=== PATIENT | male | born 1970 | race Hispanic/Latino ===

== ENCOUNTER 2019-04-30 14:53 | Observation (INO) | payer OTHER, SELFPAY ==
[2019-04-30 15:34] LABS: #Eosinphils 0.2 thou/uL (0.0-0.7); #Lymphocytes 1.1 thou/uL (1.20-3.40); #Monocytes 0.3 thou/uL (0.11-0.59); #Neutrophils 6.4 thou/uL (1.40-6.50); %Basophils 0.1 % (0.0-1.0); %Eosinophils 2.2 % (0.0-10.0); %Monocytes 3.8 % (0.0-10.0); %Neutrophils 80.1 % (42.0-75.0); Hemoglobin 11.6 g/dL (14.0-18.0); Mean Corpuscular HGB CONC 34.7 g/dL (32.0-36.0); Mean Corpuscular Hemoglobin 30.4 pg (27.0-31.0); Mean Corpuscular Volume 87.5 fL (78.0-98.0); Mean Platelet Volume 8.8 fL (7.4-10.4); Platelet Count 169 thou/uL (130-400); RBC Distribution Width 11.1 % (11.5-14.5); Red Blood Cell (RBC) Count 3.83 mill/uL (4.70-6.10)
--- NOTE | 2019-04-30 15:42 | CT ---
Exam: Head CT without contrast HISTORY: Bilateral blurred vision. COMPARISON: none FINDINGS: Hemorrhage: No intraparenchymal hemorrhage or extra-axial hematoma. Brain parenchyma: Cortical rain-white matter differentiation is preserved. No mass effect or midline shift. Basilar cisterns are patent. Ventricular system: Ventricles and sulci are patent and symmetric. Note is made of a cavum septa cass ucida and cavum verge. Calvarium: Intact. Sinuses and mastoid air cells: Adequate aeration. IMPRESSION: No acute intracranial process.
[2019-04-30 15:48] LABS: ALT (SGPT) 13 U/L (8-55); AST (SGOT) 15 U/L (5-34); Albumin 3.3 g/dL (3.5-5.0); Alkaline Phosphatase 87 U/L (40-110); Anion Gap 13 mmol/L (10-20); BUN (Urea Nitrogen) 18 mg/dL (8.9-20.6); Bilirubin, Total 0.4 mg/dL (0.2-1.2); Calc. Creatinine Clearance 0 mL/min (70-130); Calcium 8.9 mg/dL (7.8-10.44); Carbon Dioxide 24 mmol/L (22-29); Chloride 109 mmol/L (98-107); Estimated GFR-MDRD 51; Globulin 2.7 g/dL (2.4-3.5); Glucose 269 mg/dL (70-105); Potassium 4.8 mmol/L (3.5-5.1); Sodium 141 mmol/L (136-145)
[2019-04-30 16:22] LABS: Bilirubin Negative (Negative); Blood, Urine 2+ (Negative); Clarity Clear (Clear); Glucose, Urine (Dipstick) Greater than 1000 mg/dL (Negative); Leukocyte Negative Leu/uL (Negative); Nitrite Negative (Negative); Protein, Urine (Dipstick) 300 mg/dL (Neg-Trace); Urobilinogen Normal mg/dL (Less than 2)
[2019-04-30 16:35] LABS: Bacteria/HPF 2+ HPF (None Seen)
[2019-04-30 16:36] LABS: RBC/HPF 0-3 HPF (0-3); Squamous Epithelial 0-3 HPF (0-3)
[2019-04-30 16:41] LABS: Amphetamine Not Detected (NotDetected); Barbiturates Screen Not Detected (NotDetected); Benzodiazepine Screen Not Detected (NotDetected); Cocaine Metabolite Screen Not Detected (NotDetected); Medtox Control Line Valid? VALID (VALID); Medtox Reader # READER 1; Methadone Not Detected (NotDetected); Methamphetamine Not Detected (NotDetected); Opiate Screen Not Detected (NotDetected); Oxycodone Screen Not Detected (NotDetected); Phencyclidine (PCP) Not Detected (NotDetected); THC/Cannabinoid Screen Not Detected (NotDetected); Tricyclic Screen Not Detected (NotDetected)
--- NOTE | 2019-04-30 17:59 | PDOC.FPRHP ---
- History of Present Illness Chief Complaint: Blurry Vision History of Present Illness: 48yo M w/ PMHx of IDDM presents to the ED with complaint of blurry vision. Pt states that for the past week he has developed slowly progressive blurring of his vision. He states that initial his reading glasses helped correct this but currently his vision is so blurry that he can mostly only distinguish shapes. Pt states his right eye seems more blurry than his left. Denies any headaches, trauma, eye pain, eye discharge, or vision loss. Pt states that he has not been able to take his meal time insulin since he can't see the needles but continues to take his metformin. Has never seen an eye doctor due to having no healthcare coverage. Used to be treated for HTN and HLD but could not afford the Rx. Denies any weakness, numbness outside of his chronic neuropathy, difficulty speaking, or confusion. Pt used to be on indigent healthcare but does not have a stable home so has not been able to appropriately file the paperwork to maintain this. No recent illness. ED Course: CT brain negative. EKG no acute changes. Lab work significant for elevated glucose, no gap or ketones. Likely component of CKD. Received 325 asa and 1L NS. - History PMHx: IDDM, HTN, HLD PSHx: None FHx: DM Social: Previous 20 pack year smoker, quit 3 months ago, does not drink, occasional marijuana use, last used cocaine and meth about 6 mo ago - Review of Systems General: denies: fever/chills, weight/appetite/sleep changes Eyes: reports: vision changes. denies: eye pain ENT: denies: nasal congestion, rhinorrhea Respiratory: denies: cough, shortness of breath Cardiovascular: denies: chest pain, palpitation Gastrointestinal: denies: nausea, vomiting, diarrhea Genitourinary: denies: dysuria, polyuria Skin: denies: rashes, lesions Musculoskeletal: denies: pain, tenderness Neurological: reports: numbness (chronic numbness to distal lower extremities) Psychological: denies: other - Vital signs BP: 158/94, MAP: 115, Pulse: 101, Resp: 18, Temp: 98.6 (Oral), Pain: 0, O2 sat: 100 on (Room Air), Wt: 59kg - Physical Exam Constitutional: NAD, awake, alert and oriented, well developed HEENT: normocephalic and atraumatic, PERRLA, EOMI, no scleral icterus, grossly normal hearing, MMM -HEENT: Subjective blurring of vision, can only distinguish outlines of objects, cannot see facial features Neck: supple, FROM Heart: RRR, normal S1/S2, no murmurs/rubs/gallops Lungs: CTAB, no respiratory distress, good air movement, no rales/rhonchi, no wheezing Abdomen: soft, non-tender, bowel sounds present Musculoskeletal: normal structure, normal tone Neurological: no focal deficit, normal sensation -Neurological: Strength 5/5 in all 4 extremities, no dysmetria, dysarthria, or dysdiadidochokinesia Skin: no rash/lesions, good turgor, capillary refill <2 seconds Heme/Lymphatic: no unusual bruising or bleeding, no purpura Psychiatric: normal mood and affect, good judgment and insight, intact recent and remote memory FMR H&P: Results - Labs Result Diagrams: 04/30/19 15:15 05/01/19 04:25 Lab results: WBC 8.0 thou/uL (4.8-10.8) 04/30/19 15:15 Hgb 11.6 g/dL (14.0-18.0) L 04/30/19 15:15 Hct 33.5 % (42.0-52.0) L 04/30/19 15:15 MCV 87.5 fL (78.0-98.0) 04/30/19 15:15 Plt Count 169 thou/uL (130-400) 04/30/19 15:15 Neutrophils % 80.1 % (42.0-75.0) H 04/30/19 15:15 Sodium 141 mmol/L (136-145) 04/30/19 15:15 Potassium 4.8 mmol/L (3.5-5.1) 04/30/19 15:15 Chloride 109 mmol/L (98-107) H 04/30/19 15:15 Carbon Dioxide 24 mmol/L (22-29) 04/30/19 15:15 BUN 18 mg/dL (8.9-20.6) 04/30/19 15:15 Creatinine 1.47 mg/dL (0.7-1.3) H 04/30/19 15:15 Glucose 269 mg/dL (70-105) H 04/30/19 15:15 Lactic Acid 1.8 mmol/L (0.5-2.2) 04/30/19 15:15 Calcium 8.9 mg/dL (7.8-10.44) 04/30/19 15:15 Total Bilirubin 0.4 mg/dL (0.2-1.2) 04/30/19 15:15 AST 15 U/L (5-34) 04/30/19 15:15 ALT 13 U/L (8-55) 04/30/19 15:15 Alkaline Phosphatase 87 U/L (40-110) 04/30/19 15:15 Serum Total Protein 6.0 g/dL (6.0-8.3) 04/30/19 15:15 Albumin 3.3 g/dL (3.5-5.0) L 04/30/19 15:15 Urine Ketones Negative mg/dL (Negative) 04/30/19 15:55 Urine Blood 2+ (Negative) A 04/30/19 15:55 Urine Nitrite Negative (Negative) 04/30/19 15:55 Ur Leukocyte Esterase Negative Henrry/uL (Negative) 04/30/19 15:55 Urine RBC 0-3 HPF (0-3) 04/30/19 15:55 Urine WBC 4-6 HPF (0-3) A 04/30/19 15:55 Ur Squamous Epith Cells 0-3 HPF (0-3) 04/30/19 15:55 Urine Bacteria 2+ HPF (None Seen) A 04/30/19 15:55 - EKG Interpretation EKG: NSR, rate 98, with no ectopics, Conduction normal, ST segments normal, T waves normal, Maben normal, Other findings include:, left atrial enlargement, possible , PA interval 146 ms - Radiology Interpretation CT scan - head Status: report reviewed by me (No acute intracranial process) FMR H&P: A/P - Problem List (1) IDDM (insulin dependent diabetes mellitus) Current Visit: Yes Status: Acute Code(s): E11.9 - TYPE 2 DIABETES MELLITUS WITHOUT COMPLICATIONS; Z79.4 - CORRECTION (CURRENT) USE OF INSULIN (2) HLD (hyperlipidemia) Current Visit: Yes Status: Acute Code(s): E78.5 - HYPERLIPIDEMIA, UNSPECIFIED (3) HTN (hypertension) Current Visit: Yes Status: Acute Code(s): I10 - ESSENTIAL (PRIMARY) HYPERTENSION (4) Vision blurred Current Visit: Yes Status: Acute Code(s): H53.8 - OTHER VISUAL DISTURBANCES (5) GRAHAM (acute kidney injury) Current Visit: Yes Status: Acute Code(s): N17.9 - ACUTE KIDNEY FAILURE, UNSPECIFIED Comment: vs CKD - Plan Vision Disturbance - Diabetic retinopathy vs CVA/TIA much less likely - Progressive blurring of vision over last week, worsening glycemic control, no other focal deficits, no eye pain or signs of infection - CT brain negative - MRI brain ordered - Risk stratify with FLP and HgbA1c - CM consulted to assist with medication and f/u as outpt Hyperglycemia - Uncontrolled IDDM - IDDM, takes metformin and meal time sliding scale insulin - Has never seen an eye doctor - no health care coverage - Has not taken insulin in last week, running out of metformin - HbA1c ordered - Moderate sliding scale insulin added for meals w/ bedtime SSI GRAHAM vs CKD - Cr: 1.47, only previous level 1.6 - Suspect chronic renal insufficiency, lisinopril started Homelessness - Limited access to healthcare or medications - CM consult Chronic Problems HTN and HLD - Monitor BP - Pt not medicated because he can't afford it - Will start lisinopril and atorvastatin VTE: Lovenox IVF: SL Diet: CC Code: Full Dispo: Admit to stroke obs. ELOS < 48hr PCP: Dr. Foy FMR H&P: Upper Level - Pertinent history 48 yo M w/ PMH of HTN, HLD and DMII presents for 1 week h/o worsening vision in b/l eyes. Rerports blurring of vision that has worsened over last week. No eye pain, total vision loss or visual field defects. No headaches, numbness, weakness, or tingling aside from baseline parethesias from his DM neuropathy. - Pertinent findings ROS: As above PE: Gen: NAD HEENT: Perrla, EOMI, Visual lema intact, grossly decreased vision without KALLIE , NCAT CV: RRR No MRG Resp: CTABL No wrr Abd: Soft NTND bsx4 Neuro: No focal deficit CNII-XII intact Psych: alert and cooperative - Plan Date/Time: 04/30/191758 I, Piter Dodson, , have evaluated this patient and agree with findings/ plan as outlined by medical intern resident. Pertinent changes/additions are listed here. 1) Loss of vision - appears gradual and likely related to underlying microvascular changes from DM retinopathy - would benefit from OP opthomologist; however, pt unfunded - vision has decreased to a point he can no longer measure amount of meal time insulin he is giving himself - cm consulted for difficult social situation - admit stroke obs - very unlikely stroke related given hx and lack of unilateral or vision field losses - consider further imaging 2) HTN - lisinopril - monitor pressures 3) HLD: Restart stain - am FLP 4) DMII: - Accuchecks achs, mild SSI Dispo: Stable, admit stroke obs and consult cm for assistance with difficult social situation. Consider further imaging. Will need OP optho evaluation, no emergent/urgent features of decreasing visual acuity. Addendum - Attending - Attending Attestation Date/Time: 05/01/19 2004 I personally evaluated the patient and discussed the management with Dr. Valdez. I agree with the History, Examination, Assessment and Plan documented above with any addition or exceptions noted below.
[2019-04-30] MEDS ORDERED: Aspirin Chewable 81 MG TAB ONE (18:01)
[2019-04-30 18:41] LABS: Hemoglobin A1c 7.9 % (4.0-6.0)
[2019-04-30 19:36] LABS: Troponin I Less than 0.010 ng/mL (< 0.028)
[2019-04-30] MEDS ORDERED: Dextrose 50% Abboject 50 ML SYRINGE SLOW IVP PRN (20:01)
[2019-04-30] MEDS ORDERED: hydrALAZINE 20 MG/ML VIAL SLOW IVP PRN (20:01)
[2019-04-30] MEDS ORDERED: HumaLOG 300 UNITS/3 ML VIAL SC PRN (20:01)
[2019-04-30] MEDS ORDERED: Dextrose 5% in Water 1,000 ML IV PRN (20:01)
[2019-04-30 20:04] VITALS: BMI 23.1
[2019-04-30] MEDS ORDERED: Atorvastatin Calcium 40 MG TAB PO SCH (21:00)
[2019-04-30 22:46] LABS: Troponin I 0.012 ng/mL (< 0.028)
[2019-05-01 05:14] LABS: Anion Gap 8 mmol/L (10-20); BUN (Urea Nitrogen) 19 mg/dL (8.9-20.6); Calc. Creatinine Clearance 78 mL/min (70-130); Calcium 8.7 mg/dL (7.8-10.44); Carbon Dioxide 30 mmol/L (22-29); Cardiac Risk 4.6 (Less than 4.5); Chloride 108 mmol/L (98-107); Cholesterol 199 mg/dl (< 200 Desired); Estimated GFR-MDRD 77; Glucose 240 mg/dL (70-105); HDL Cholesterol 43 mg/dL (>60 Neg Risk); LDL Cholesterol, Calculated 124 mg/dL; Potassium 4.3 mmol/L (3.5-5.1); Sodium 142 mmol/L (136-145); Triglycerides 158 mg/dL (Less than 150)
[2019-05-01] MEDS: HumaLOG 300 UNITS/3 ML VIAL SC PRN ×2 (05:34→11:39)
[2019-05-01] MEDS: Acetaminophen 325 MG TAB PO PRN ×2 (05:41→11:38)
--- NOTE | 2019-05-01 06:50 | PDOC.FM ---
- Subjective Subjective: Pt states he has been having progressive numbness and tingling in his feet making it difficult to walk. He also states he has been having worsening vision for the last year but acutely worsening in the last week. He denies early satiety, chest pain, SOB, or abdominal pain. He states in the last 6 months, he has been starting to treat his diabetes more aggressively with insulin. He states this was prompted by increased fatigue, unsteadiness with walking, and increasing lethargy. - Objective MAR Reviewed: Yes Vital Signs & Weight: Vital Signs (12 hours) Temp Pulse Resp BP Pulse Ox 05/01/19 03:21 97.9 F 86 14 149/86 H 97 04/30/19 23:39 98.6 F 93 16 183/85 H 97 04/30/19 19:20 98.0 F 96 18 188/89 H 98 Weight Weight 62.913 kg I&O: 04/29/19 04/30/19 05/01/19 06:59 06:59 06:59 Intake Total 810 Balance 810 Result Diagrams: 04/30/19 15:15 05/01/19 04:25 Phys Exam - Physical Examination Constitutional: NAD HEENT: moist MMs Neck: no JVD Respiratory: no wheezing, clear to auscultation bilateral Cardiovascular: RRR, no significant murmur Gastrointestinal: soft, non-tender, no distention, positive bowel sounds Musculoskeletal: no edema, pulses present Neurological: moves all 4 limbs blurry vision, decrased sensation on bilateral feet to ankle Psychiatric: A&O x 3 Skin: cap refill <2 seconds Dx/Plan (1) GRAHAM (acute kidney injury) Code(s): N17.9 - ACUTE KIDNEY FAILURE, UNSPECIFIED Status: Acute (2) HLD (hyperlipidemia) Code(s): E78.5 - HYPERLIPIDEMIA, UNSPECIFIED Status: Acute (3) HTN (hypertension) Code(s): I10 - ESSENTIAL (PRIMARY) HYPERTENSION Status: Acute (4) IDDM (insulin dependent diabetes mellitus) Code(s): E11.9 - TYPE 2 DIABETES MELLITUS WITHOUT COMPLICATIONS; Z79.4 - GROUP HOME (CURRENT) USE OF INSULIN Status: Acute (5) Vision blurred Code(s): H53.8 - OTHER VISUAL DISTURBANCES Status: Acute - Plan Plan: This is a 48 yo male with a pmh HTN, HLD, and IDDM Bilateral visual disturbance, likely 2/2 diabetic retinopathy -CT brain negative -A1c 7.9, LDL 124 -Case management for medication assistance -Nursing contacting pharmacy this AM for med rec -Pt will need outpt ophthalmology IDDM -No health coverage, no DM eye exams -No insulin last week 2/2 vision -ACHS accuchecks w/ moderate SSI GRAHAM Vs. CKD -Not much data to compare to -Continue lisinopril Homelessness -CM consult HTN/HLD -Not on medication due to cost, starting lisinopril and atorvastatin Addendum - Attending - Attending Attestation Date/Time: 05/01/19 1111 I personally evaluated the patient and discussed the management with Dr. Taylor I agree with the History, Examination, Assessment and Plan documented above with any addition or exceptions noted below. MRI negative. Vision changes likely 2/2 age vs IDDM. D/C home with close follow up in clinic for control of chronic medical problems. Uninsured so given contact info for [facility] clinic for sliding scale or [facility].
[2019-05-01] MEDS ORDERED: metFORMIN 500 MG TAB PO SCH (08:00)
[2019-05-01] MEDS ORDERED: Aspirin 81 mg Enteric Coated Tablet PO SCH (09:00)
[2019-05-01] MEDS ORDERED: Enoxaparin Sodium 40 MG/0.4 ML SYRINGE SC SCH (09:00)
[2019-05-01] MEDS ORDERED: Lisinopril 5 MG TAB PO SCH (09:00)
--- NOTE | 2019-05-01 09:54 | MRI ---
Exam: Brain MRI without contrast HISTORY: Stroke. Blurred vision x1 week. Diabetic patient. Taking insulin. COMPARISON: None FINDINGS: Calvarial marrow signal intensity: Appropriate T1 signal Gradient echo sequence: No hemorrhage Brain parenchyma: No mass, mass effect or midline shift. Brain volume, age-appropriate. Cortical rain-white matter differentiation: Preserved Restricted diffusion: Central arterial flow voids are maintained. Absent restricted diffusion White matter signal intensities:No significant T2 or FLAIR white matter hyperintensities. Sinuses: Minimal mucosal thickening of the ethmoid air cells. Ventricles: No hydrocephalus. Incidental cavum septa pellucidum and cavum Cheryl. IMPRESSION: 1. Absent restricted diffusion. No evidence of infarct.
[2019-05-01 11:54] VITALS: BP 151/94; TEMP 97.8
--- NOTE | 2019-05-01 14:27 | EKG ---
Test Reason : Blood Pressure : / mmHG Vent. Rate : 098 BPM Atrial Rate : 098 BPM P-R Int : 146 ms QRS Dur : 088 ms QT Int : 344 ms P-R-T Axes : 047 046 016 degrees QTc Int : 439 ms Normal sinus rhythm Possible Left atrial enlargement Borderline ECG Confirmed by ALFNOSO COBURN ([id number]), movie editor SOLO TOMLINSON ([id number]) on 05/01/2019 2:26:34 PM Referred By: Confirmed By:ALFONSO COBURN
== END 2019-05-01 15:59 | disposition home or self-care (01) ==
LOC: ERS 14:53 → 2SE 17:37
PROVIDERS: ADMIT Family Medicine; ATTEND Family Medicine
DX: H53.8 Other visual disturbances (principal); I10 Essential (primary) hypertension; E11.65 Type 2 diabetes mellitus with hyperglycemia; E78.5 Hyperlipidemia, unspecified; N17.9 Acute kidney failure, unspecified; Z79.4 Long term (current) use of insulin; Z87.891 Personal history of nicotine dependence; Z59.0 Homelessness
CPT/HCPCS: 36415; 36416; 70450; 70551; 80048; 80053; 80061; 80306; 81003; 81015; 82010; 83036; 83605; 84484; 85025; 93005; 94760; 96360; 96361; 96372; G0378; J1650

== ENCOUNTER 2020-01-28 06:27 | Outpatient (CLI) | payer OTHER ==
[2020-01-29 13:23] LABS: SARS-CoV-2 MS2 Positive; SARS-CoV-2 N Gene Negative; SARS-CoV-2 S Gene Negative; SARS-CoV-2 by NAA Not Detected (NotDetected); SARS-CoV-2 orf1ab Negative
== END 2020-01-28 06:28 | disposition home or self-care (01) ==
LOC: LABBT 06:27
PROVIDERS: ATTEND Ophthalmology Retina Specialist
DX: H33.021 Retinal detachment with multiple breaks, right eye (principal); Z20.828 Contact with and (suspected) exposure to other viral communicable diseases
CPT/HCPCS: 87635; U0003

== ENCOUNTER 2020-01-31 07:51 | Day surgery (SDC) | payer OTHER ==
[~2020-01-31 07:51] MED LIST: Fentanyl 100 MCG/2 ML VIAL ONE; Fluorouracil 100 MG, EPINEPHrine 0.3 MG, Dextrose 50% 3 ML in Ophthalmic Irrigation Sol... IRR SCH; Midazolam HCl 2 mg/2 ml Vial ONE
[2020-01-31] MEDS ORDERED: Cyclopentolate 1% Opth Drop 2 ML BOT ONE (08:43)
[2020-01-31] MEDS ORDERED: Phenylephrine 2.5% Ophth Soln 5 ML BOT ONE (08:43)
[2020-01-31] MEDS ORDERED: Labetalol HCl 100 MG/20 ML VIAL ONE (09:29)
[2020-01-31] MEDS ORDERED: Maxitrol 0.1% Opth Oint 3.5 GM TUBE ONE (09:55)
[2020-01-31] MEDS ORDERED: Triamcinolone 40 MG/ML VIAL ONE (09:55)
[2020-01-31] MEDS ORDERED: Lidocaine 1% PF 5 ML VIAL ONE (09:55)
[2020-01-31] MEDS ORDERED: Bupivacaine PF 0.75% SDV 10 ML ONE (09:55)
[2020-01-31] MEDS ORDERED: PROPOFOL 200 MG/20 ML VIAL ONE (09:55)
[2020-01-31] MEDS ORDERED: Lidocaine 4% PF 5 ML AMP ONE (09:55)
[2020-01-31] MEDS ORDERED: CEFAZOLIN 1 GM VIAL ONE (09:55)
[2020-01-31] MEDS ORDERED: HYDROcodone/Acetaminophen 5/325 mg Tablet ONE (12:16)
--- NOTE | 2020-02-01 14:29 | OP ---
DATE OF PROCEDURE: 01/31/2020 PREOPERATIVE DIAGNOSIS: Tractional retinal detachment, right eye. POSTOPERATIVE DIAGNOSIS: Tractional retinal detachment, right eye. PROCEDURE PERFORMED: Complex retinal detachment repair, right eye. ANESTHESIA: Local anesthesia. DESCRIPTION OF PROCEDURE: The patient was identified in the preoperative holding area. Appropriate informed consent for the planned surgical procedure on the right eye had been obtained. The patient was transported to the operative suite. Appropriate cardiopulmonary monitoring was established. Local anesthesia was obtained using retrobulbar modified Van Lint lid block using 50:50 mixture of 4% lidocaine, 0.75% bupivacaine. The patient was prepped and draped in usual sterile manner for ophthalmic surgery on the right eye. Lid speculum was placed in the right eye. A 25-gauge trocar was placed in the conjunctiva and sclera superotemporally, inferotemporally, and supranasally. Infusion line was placed inferotemporally. Light pipe vitreous cutter was inserted into the eye. Core vitrectomy was performed removing vitreous hemorrhage. This revealed total tractional retinal detachment posterior. The proliferans was elevated from the nerve using end gripping forceps and then peeled across the macula and proliferans was trimmed from the retinal surface in a stepwise fashion. Rigid adherence of the posterior hyaloid face was noted in the retinal periphery, especially nasally. A hole was created inferotemporally and a complete air-fluid exchange was performed draining extensive amounts of thick subretinal fluid. Panretinal photocoagulation was placed using Endolaser delivery device. Complete air-fluid exchange was performed, 10 minutes were allowed for fluid to drain posteriorly. 15% perfluoropropane gas was infused into the eye. Trocars were removed. Superior sclerotomies were sutured closed. Retrobulbar Kenalog and subconjunctival Ancef were placed. Antibiotic ointment was placed. Eye was patched and shielded. The patient was advised to position left side down. Followup in the morning with Dr. Conroy. Job ID: [id number]
== END 2020-01-31 12:45 | disposition home or self-care (01) ==
LOC: SDC 07:51
PROVIDERS: ATTEND Ophthalmology Retina Specialist
PROC: 08T43ZZ Resection of Right Vitreous, Percutaneous Approach (ICD-10-PCS; principal; 2020-01-31)
DX: H33.41 Traction detachment of retina, right eye (principal); E11.9 Type 2 diabetes mellitus without complications; Z79.4 Long term (current) use of insulin
CPT/HCPCS: 36416; 67025; J0171; J0690; J2001; J2250; J2704; J3010; J3301; J3490; J9190

== ENCOUNTER 2020-09-03 15:21 | Outpatient (CLI) | payer OTHER | END 2020-09-03 15:22 | disposition home or self-care (01) | LOC: BICRAD 15:21 | PROVIDERS: ATTEND Family Medicine | DX: M25.511 Pain in right shoulder (principal) | CPT/HCPCS: 36415; 80053; 83036 ==

== ENCOUNTER 2021-05-22 16:09 | Inpatient (IN) | payer OTHER ==
[2021-05-22] MEDS ORDERED: Insulin Regular 300 UNITS/3 ML VIAL ONE (16:34)
[2021-05-22 16:45] LABS: Actual Bicarbonate (HCO3v) 21 mEq/L (22-28); Analyzer IN Cardio ER; Base Excess -2.5 mEq/L (-2.0 to +3.0); Calcium, Ionized (venous) 1.01 mmol/L (1.16-1.32); Chloride (VBG) 79 mmol/L (98-106); Hemoglobin (Hb) 17.8 g/dL (13.1-17.2); Potassium (VBG) 4.55 mmol/L (3.70-5.30)
[2021-05-22 16:49] LABS: #Lymphocytes 0.6 thou/uL (1.20-3.40); #Monocytes 0.7 thou/uL (0.11-0.59); #Neutrophils 14.3 thou/uL (1.40-6.50); %Basophils 0.1 % (0.0-1.0); %Eosinophils 0.1 % (0.0-10.0); %Monocytes 4.7 % (0.0-10.0); %Neutrophils 91.3 % (42.0-75.0); Hemoglobin 16.6 g/dL (14.0-18.0); Mean Corpuscular HGB CONC 34.8 g/dL (32.0-36.0); Mean Corpuscular Hemoglobin 30.4 pg (27.0-31.0); Mean Corpuscular Volume 87.3 fL (78.0-98.0); Mean Platelet Volume 8.5 fL (7.4-10.4); Platelet Count 371 thou/uL (130-400); RBC Distribution Width 10.9 % (11.5-14.5); Red Blood Cell (RBC) Count 5.47 mill/uL (4.70-6.10); White Blood Cell (WBC) Count 15.7 thou/uL (4.8-10.8)
[2021-05-22 17:04] LABS: ALT (SGPT) 17 U/L (8-55); AST (SGOT) 13 U/L (5-34); Albumin 3.5 g/dL (3.5-5.0); Alkaline Phosphatase 104 U/L (40-110); Anion Gap 32 mmol/L (10-20); BUN (Urea Nitrogen) 72 mg/dL (8.9-20.6); Bilirubin, Total 0.8 mg/dL (0.2-1.2); Calc. Creatinine Clearance 0 mL/min (70-130); Carbon Dioxide 19 mmol/L (22-29); Chloride 80 mmol/L (98-107); Globulin 3.4 g/dL (2.4-3.5); Glucose 541 mg/dL (70-105); Lipase 105 U/L (8-78); Magnesium 2.6 mg/dL (1.6-2.6); Phosphorus 4.6 mg/dL (2.3-4.7); Potassium 4.6 mmol/L (3.5-5.1); Protein, Total 6.9 g/dL (6.0-8.3); Sodium 126 mmol/L (136-145)
[2021-05-22 17:23] LABS: Bilirubin Negative (Negative); Blood, Urine 1+ (Negative); Clarity Clear (Clear); Glucose, Urine (Dipstick) Greater than 1000 mg/dL (Negative); Ketone, Urine 20 mg/dL (Negative); Leukocyte Negative Leu/uL (Negative); Nitrite Negative (Negative); Protein, Urine (Dipstick) 200 mg/dL (Neg-Trace); RBC/HPF 0-3 HPF (0-3); Specific Gravity, Urine 1.018 (1.002-1.036); Squamous Epithelial 0-3 HPF (0-3); Urobilinogen Normal mg/dL (Less than 2); WBC/HPF 0-3 HPF (0-3); pH, Urine 5.5 (5.0-9.0)
[2021-05-22 17:24] LABS: Bacteria/HPF 1+ HPF (None Seen)
[2021-05-22 17:26] LABS: CKMB 5.7 ng/mL (0-6.6)
[2021-05-22] MEDS ORDERED: INSULIN REGULAR IN 0.9 % NACL 100 UNIT/100 ML BAG ONE (18:01)
[2021-05-22] MEDS ORDERED: Ondansetron PF 4 MG/2 ML Vial ONE (18:01)
[2021-05-22] MEDS ORDERED: NS 0.9% w/ 20 MEQ KCL 1,000 ML ONE ×2 (19:07→21:10)
[2021-05-22 19:20] LABS: Troponin I 0.053 ng/mL (< 0.028)
[2021-05-22] MEDS ORDERED: Electrolyte Replacement Protocol 1 EACH IVPB ONE (19:34)
[2021-05-22] MEDS ORDERED: D5 1/2 NS w/20 mEq KCL 1,000 ML IV PRN (19:34)
[2021-05-22] MEDS ORDERED: NS 0.9% w/ 20 MEQ KCL 1,000 ML IV PRN ×2 (19:34)
[2021-05-22] MEDS ORDERED: Dextrose 5 %-0.45 % NaCl 1,000 ML IV PRN (19:34)
[2021-05-22] MEDS ORDERED: Sodium Chloride 0.9% 1,000 ML IV PRN ×2 (19:34)
[2021-05-22] MEDS ORDERED: Acetaminophen 325 MG TAB PO PRN (19:35)
[2021-05-22] MEDS ORDERED: hydrALAZINE 20 MG/ML VIAL SLOW IVP PRN (19:40)
[2021-05-22] MEDS ORDERED: HUMULIN R 100 UNITS in Sodium Chloride 0.9% 100 ML IVPB SCH (19:45)
[2021-05-22] MEDS ORDERED: Aspirin 325 MG TAB ONE (20:20)
[2021-05-22 20:49] LABS: Anion Gap 26 mmol/L (10-20); BUN (Urea Nitrogen) 68 mg/dL (8.9-20.6); Calc. Creatinine Clearance 0 mL/min (70-130); Calcium 8.5 mg/dL (7.8-10.44); Carbon Dioxide 20 mmol/L (22-29); Chloride 89 mmol/L (98-107); Glucose 322 mg/dL (70-105); Potassium 4.6 mmol/L (3.5-5.1); Sodium 130 mmol/L (136-145)
[2021-05-22 21:59] LABS: Anion Gap 19 mmol/L (10-20); BUN (Urea Nitrogen) 63 mg/dL (8.9-20.6); Calc. Creatinine Clearance 0 mL/min (70-130); Calcium 8.2 mg/dL (7.8-10.44); Carbon Dioxide 24 mmol/L (22-29); Chloride 93 mmol/L (98-107); Glucose 186 mg/dL (70-105); Sodium 132 mmol/L (136-145)
[2021-05-22 22:05] LABS: Troponin I 0.045 ng/mL (< 0.028)
[2021-05-22] MEDS ORDERED: Dextrose 50% Abboject 50 ML SYRINGE ONE (22:18)
[2021-05-22] MEDS ORDERED: D5 1/2 NS w/20 mEq KCL 1,000 ML ONE (22:26)
[2021-05-23 00:10] LABS: Anion Gap 13 mmol/L (10-20); BUN (Urea Nitrogen) 57 mg/dL (8.9-20.6); Calc. Creatinine Clearance 0 mL/min (70-130); Calcium 7.9 mg/dL (7.8-10.44); Carbon Dioxide 28 mmol/L (22-29); Chloride 95 mmol/L (98-107); Glucose 206 mg/dL (70-105); Potassium 4.1 mmol/L (3.5-5.1); Sodium 132 mmol/L (136-145)
[2021-05-23 00:27] LABS: SARS-CoV-2 NAA Rapid Test Not Detected (NotDetected)
[2021-05-23] MEDS ORDERED: Dextrose 5% in Water 1,000 ML IV PRN (03:36)
[2021-05-23] MEDS ORDERED: Dextrose 50% Abboject 50 ML SYRINGE SLOW IVP PRN (03:36)
[2021-05-23] MEDS ORDERED: HumaLOG 300 UNITS/3 ML VIAL SC PRN (03:36)
[2021-05-23] MEDS: Heparin 5,000 UNITS/ML VIAL SC SCH ×4 (03:48→21:40)
[2021-05-23] MEDS: Pantoprazole 40 MG VIAL IVP SCH ×2 (03:48→21:47)
[2021-05-23] MEDS: Sodium Chloride 0.9% 1,000 ML IV SCH ×4 (03:53→21:43)
[2021-05-23 03:56] LABS: #Lymphocytes 1.7 thou/uL (1.20-3.40); #Monocytes 1.3 thou/uL (0.11-0.59); #Neutrophils 9.9 thou/uL (1.40-6.50); %Basophils 0.1 % (0.0-1.0); %Eosinophils 0.2 % (0.0-10.0); %Lymphocytes 13.4 % (21.0-51.0); %Neutrophils 76.4 % (42.0-75.0); Hemoglobin 14.2 g/dL (14.0-18.0); Mean Corpuscular HGB CONC 34.6 g/dL (32.0-36.0); Mean Corpuscular Hemoglobin 30.5 pg (27.0-31.0); Mean Corpuscular Volume 87.9 fL (78.0-98.0); Platelet Count 302 thou/uL (130-400); RBC Distribution Width 10.8 % (11.5-14.5); Red Blood Cell (RBC) Count 4.65 mill/uL (4.70-6.10); White Blood Cell (WBC) Count 12.9 thou/uL (4.8-10.8)
[2021-05-23 04:14] LABS: Anion Gap 15 mmol/L (10-20); BUN (Urea Nitrogen) 49 mg/dL (8.9-20.6); Calc. Creatinine Clearance 0 mL/min (70-130); Carbon Dioxide 25 mmol/L (22-29); Chloride 97 mmol/L (98-107); Glucose 96 mg/dL (70-105); Potassium 4.2 mmol/L (3.5-5.1); Sodium 133 mmol/L (136-145)
[2021-05-23 04:41] VITALS: BMI 23.5
[2021-05-23] MEDS ORDERED: hydrALAZINE 20 MG/ML VIAL SLOW IVP PRN (05:45)
[2021-05-23] MEDS: HumaLOG 300 UNITS/3 ML VIAL SC PRN ×2 (05:50→17:31)
[2021-05-23] MEDS: Ondansetron PF 4 MG/2 ML Vial IVP PRN ×2 (09:13→22:11)
[2021-05-23] MEDS: Lantus 1000 UNITS/10 ML VIAL SC SCH (11:20)
[2021-05-23] MEDS: Metoclopramide HCl 10 MG TAB PO SCH ×3 (11:21→21:47)
[2021-05-24 05:52] LABS: Bacteria/HPF None Seen HPF (None Seen); Bilirubin Negative (Negative); Blood, Urine 1+ (Negative); Clarity Clear (Clear); Glucose, Urine (Dipstick) 500 mg/dL (Negative); Ketone, Urine Negative (Negative); Leukocyte Negative Leu/uL (Negative); Nitrite Negative (Negative); Protein, Urine (Dipstick) 200 mg/dL (Neg-Trace); Specific Gravity, Urine 1.014 (1.002-1.036); Squamous Epithelial None Seen HPF (0-3); Urobilinogen Normal mg/dL (Less than 2); WBC/HPF 0-3 HPF (0-3)
[2021-05-24 06:23] LABS: #Basophils 0.1 thou/uL (0.0-0.2); #Eosinphils 0.1 thou/uL (0.0-0.7); #Lymphocytes 1.8 thou/uL (1.20-3.40); #Monocytes 0.8 thou/uL (0.11-0.59); %Basophils 0.6 % (0.0-1.0); %Eosinophils 0.6 % (0.0-10.0); %Lymphocytes 16.8 % (21.0-51.0); %Monocytes 7.1 % (0.0-10.0); %Neutrophils 74.8 % (42.0-75.0); Anion Gap 14 mmol/L (10-20); BUN (Urea Nitrogen) 26 mg/dL (8.9-20.6); Calc. Creatinine Clearance 57 mL/min (70-130); Carbon Dioxide 23 mmol/L (22-29); Chloride 100 mmol/L (98-107); Glucose 103 mg/dL (70-105); Hemoglobin 13.4 g/dL (14.0-18.0); Mean Corpuscular HGB CONC 34.4 g/dL (32.0-36.0); Mean Corpuscular Hemoglobin 30.3 pg (27.0-31.0); Mean Corpuscular Volume 88.2 fL (78.0-98.0); Mean Platelet Volume 8.5 fL (7.4-10.4); Platelet Count 262 thou/uL (130-400); Potassium 3.8 mmol/L (3.5-5.1); RBC Distribution Width 10.9 % (11.5-14.5); Red Blood Cell (RBC) Count 4.41 mill/uL (4.70-6.10); Sodium 133 mmol/L (136-145); White Blood Cell (WBC) Count 10.7 thou/uL (4.8-10.8)
[2021-05-24 07:54] VITALS: TEMP 99.1
[2021-05-24] MEDS: Heparin 5,000 UNITS/ML VIAL SC SCH ×2 (08:54→16:32)
[2021-05-24] MEDS: Metoclopramide HCl 10 MG TAB PO SCH ×2 (08:54→11:13)
[2021-05-24] MEDS: Lantus 1000 UNITS/10 ML VIAL SC SCH (09:03)
[2021-05-24] MEDS ORDERED: Amlodipine 5 MG TAB PO SCH (09:15)
[2021-05-24 11:52] VITALS: BP 178/86
[2021-05-24] MEDS: Sodium Chloride 0.9% 1,000 ML IV SCH (13:34)
[2021-05-25] MEDS ORDERED: Amlodipine 5 MG TAB PO SCH (09:00)
== END 2021-05-24 16:15 | disposition home or self-care (01) | DRG 637 ==
LOC: ERS 16:09 → IMCU/EMU 18:22 → 2NO 05-24 07:10
PROVIDERS: ADMIT Family Medicine; ATTEND Internal Medicine
DX: E10.10 Type 1 diabetes mellitus with ketoacidosis without coma (principal); I21.A1 Myocardial infarction type 2; N17.9 Acute kidney failure, unspecified; E87.1 Hypo-osmolality and hyponatremia; Z20.822 Contact with and (suspected) exposure to COVID-19; E78.5 Hyperlipidemia, unspecified; E11.22 Type 2 diabetes mellitus with diabetic chronic kidney disease; I12.9 Hypertensive chronic kidney disease with stage 1 through stage 4 chronic kidney disease, or unspecified chronic kidney disease; F12.10 Cannabis abuse, uncomplicated; N18.30 Chronic kidney disease, stage 3 unspecified; E10.649 Type 1 diabetes mellitus with hypoglycemia without coma; Z91.14 Patient's other noncompliance with medication regimen
CPT/HCPCS: 36415; 36416; 76770; 80048; 80053; 81003; 81015; 82553; 82805; 83690; 83735; 84100; 84484; 85025; 87040; 87086; 93005; 93306; C9113; J0360; J1644; J1815; J2405; J3480; J7050; U0002

== ENCOUNTER 2021-10-16 07:57 | Outpatient (CLI) | payer OTHER | END 2021-10-16 07:58 | disposition home or self-care (01) | LOC: BICULT 07:57 | PROVIDERS: ATTEND Internal Medicine Nephrology | DX: N18.30 Chronic kidney disease, stage 3 unspecified (principal); N28.1 Cyst of kidney, acquired | CPT/HCPCS: 76770 ==

== ENCOUNTER 2022-06-23 16:14 | Observation (INO) | payer OTHER ==
[~2022-06-23 16:14] MED LIST changes: -Fentanyl 100 MCG/2 ML VIAL ONE; -Fluorouracil 100 MG, EPINEPHrine 0.3 MG, Dextrose 50% 3 ML in Ophthalmic Irrigation Sol... IRR SCH; +Iopamidol-370 76% 500 ML 1 ML ONE; -Midazolam HCl 2 mg/2 ml Vial ONE
[2022-06-23] MEDS ORDERED: Ondansetron PF 4 MG/2 ML Vial ONE (16:28)
[2022-06-23 16:58] LABS: #Monocytes 0.5 thou/uL (0.11-0.59); #Neutrophils 9.9 thou/uL (1.40-6.50); %Basophils 0.1 % (0.0-1.0); %Eosinophils 0.1 % (0.0-10.0); %Lymphocytes 8.6 % (21.0-51.0); %Monocytes 4.2 % (0.0-10.0); %Neutrophils 86.9 % (42.0-75.0); Hemoglobin 16.3 g/dL (14.0-18.0); Mean Corpuscular HGB CONC 35.9 g/dL (32.0-36.0); Mean Corpuscular Volume 86.4 fl (78.0-98.0); Mean Platelet Volume 9.5 fL (7.4-10.4); Platelet Count 263 10x3/uL (130-400); RBC Distribution Width 11.2 % (11.5-14.5); Red Blood Cell (RBC) Count 5.25 mill/uL (4.70-6.10); White Blood Cell (WBC) Count 11.4 10x3/uL (4.8-10.8)
[2022-06-23 17:15] LABS: ALT (SGPT) 14 U/L (8-55); AST (SGOT) 13 U/L (5-34); Albumin 3.8 g/dL (3.5-5.0); Alkaline Phosphatase 88 U/L (40-110); Anion Gap 26 mmol/L (10-20); BUN (Urea Nitrogen) 72 mg/dL (8.4-25.7); Bilirubin, Total 1.4 mg/dL (0.2-1.2); Calc. Creatinine Clearance 0 mL/min (70-130); Calcium 9.1 mg/dL (7.8-10.44); Carbon Dioxide 21 mmol/L (22-29); Chloride 84 mmol/L (98-107); Estimated GFR 26; Globulin 3.3 g/dL (2.4-3.5); Glucose 342 mg/dL (70-105); Lipase 158 U/L (8-78); Potassium 4.2 mmol/L (3.5-5.1); Protein, Total 7.1 g/dL (6.0-8.3); Sodium 127 mmol/L (136-145)
[2022-06-23 17:37] LABS: CKMB 4.6 ng/mL (0-6.6)
[2022-06-23 20:18] LABS: Lactic Acid 2.1 mmol/L (0.5-2.2)
[2022-06-23 21:17] LABS: Actual Bicarbonate (HCO3v) 22 mEq/L (22-28); Base Excess -3.3 mEq/L (-2.0 to +3.0); Calcium, Ionized (venous) 1.03 mmol/L (1.16-1.32); Chloride (VBG) 88 mmol/L (98-106); Potassium (VBG) 4.64 mmol/L (3.70-5.30); Sodium 127.8 mmol/L (133-146); pH (venous) 7.36 (7.32-7.43)
[2022-06-23 22:40] LABS: Bacteria/HPF None Seen HPF (None Seen); Bilirubin Negative (Negative); Blood, Urine 2+ (Negative); Clarity Clear (Clear); Glucose, Urine (Dipstick) Greater than 1000 mg/dL (Negative); Ketone, Urine 40 mg/dL (Negative); Leukocyte Negative Leu/uL (Negative); Nitrite Negative (Negative); Protein, Urine (Dipstick) 200 mg/dL (Neg-Trace); Specific Gravity, Urine 1.014 (1.002-1.036); Squamous Epithelial None Seen HPF (0-3); Urobilinogen Normal mg/dL (Less than 2); WBC/HPF 0-3 HPF (0-3)
[2022-06-23] MEDS ORDERED: Dextrose 5% in Water 1,000 ML IV PRN (22:44)
[2022-06-23] MEDS ORDERED: Dextrose 50% Abboject 50 ML SYRINGE SLOW IVP PRN (22:44)
[2022-06-23] MEDS ORDERED: Ondansetron ODT 4 MG TAB PO PRN (22:46)
[2022-06-23] MEDS ORDERED: Acetaminophen 650 MG Suppository PR PRN (22:46)
[2022-06-23] MEDS ORDERED: Acetaminophen 325 MG TAB PO PRN (22:46)
[2022-06-23] MEDS ORDERED: Ondansetron PF 4 MG/2 ML Vial IVP PRN (22:46)
[2022-06-23] MEDS ORDERED: Insulin Glargine 30 UNITS/0.3 ML VIAL SC SCH (23:00)
[2022-06-23 23:45] LABS: Anion Gap 25 mmol/L (10-20); BUN (Urea Nitrogen) 65 mg/dL (8.4-25.7); Calc. Creatinine Clearance 0 mL/min (70-130); Calcium 8.2 mg/dL (7.8-10.44); Carbon Dioxide 19 mmol/L (22-29); Chloride 89 mmol/L (98-107); Estimated GFR 31; Glucose 330 mg/dL (70-105); Potassium 4.5 mmol/L (3.5-5.1); Sodium 128 mmol/L (136-145)
[2022-06-24] MEDS ORDERED: HumaLOG 300 UNITS/3 ML VIAL ONE (01:42)
[2022-06-24] MEDS: Sodium Chloride 0.9% 1,000 ML IV SCH ×2 (03:39→05:23)
[2022-06-24 03:51] VITALS: BMI 25.1
[2022-06-24 05:48] LABS: #Eosinphils 0.1 thou/uL (0.0-0.7); #Lymphocytes 1.3 thou/uL (1.20-3.40); #Monocytes 0.7 thou/uL (0.11-0.59); #Neutrophils 9.9 thou/uL (1.40-6.50); %Basophils 0.1 % (0.0-1.0); %Eosinophils 0.5 % (0.0-10.0); %Monocytes 5.8 % (0.0-10.0); %Neutrophils 82.6 % (42.0-75.0); Hemoglobin 14.2 g/dL (14.0-18.0); Mean Corpuscular HGB CONC 36.1 g/dL (32.0-36.0); Mean Corpuscular Hemoglobin 31.4 pg (27.0-31.0); Mean Corpuscular Volume 86.9 fl (78.0-98.0); Mean Platelet Volume 9.4 fL (7.4-10.4); Platelet Count 228 10x3/uL (130-400); RBC Distribution Width 11.2 % (11.5-14.5); Red Blood Cell (RBC) Count 4.52 mill/uL (4.70-6.10); White Blood Cell (WBC) Count 11.9 10x3/uL (4.8-10.8)
[2022-06-24 06:13] LABS: Anion Gap 18 mmol/L (10-20); BUN (Urea Nitrogen) 53 mg/dL (8.4-25.7); Calc. Creatinine Clearance 41 mL/min (70-130); Calcium 8.3 mg/dL (7.8-10.44); Carbon Dioxide 23 mmol/L (22-29); Chloride 95 mmol/L (98-107); Estimated GFR 34; Glucose 221 mg/dL (70-105); Potassium 3.9 mmol/L (3.5-5.1); Sodium 132 mmol/L (136-145)
[2022-06-24] MEDS: HumaLOG 300 UNITS/3 ML VIAL SC PRN ×4 (06:18→21:07)
[2022-06-24] MEDS: Insulin Glargine 30 UNITS/0.3 ML VIAL SC SCH (21:06)
[2022-06-25] MEDS ORDERED: Calcium Carbonate 500 MG ChewTAB PO PRN (03:50)
[2022-06-25 05:36] LABS: #Eosinphils 0.1 thou/uL (0.0-0.7); #Monocytes 0.7 thou/uL (0.11-0.59); #Neutrophils 6.1 thou/uL (1.40-6.50); %Basophils 0.2 % (0.0-1.0); %Eosinophils 1.5 % (0.0-10.0); %Lymphocytes 22.3 % (21.0-51.0); %Monocytes 7.6 % (0.0-10.0); %Neutrophils 68.3 % (42.0-75.0); Hemoglobin 12.8 g/dL (14.0-18.0); Mean Corpuscular HGB CONC 34.7 g/dL (32.0-36.0); Mean Corpuscular Hemoglobin 30.7 pg (27.0-31.0); Mean Corpuscular Volume 88.5 fl (78.0-98.0); Mean Platelet Volume 9.2 fL (7.4-10.4); Platelet Count 207 10x3/uL (130-400); RBC Distribution Width 11.2 % (11.5-14.5); Red Blood Cell (RBC) Count 4.16 mill/uL (4.70-6.10); White Blood Cell (WBC) Count 8.9 10x3/uL (4.8-10.8)
[2022-06-25 06:01] LABS: Anion Gap 10 mmol/L (10-20); BUN (Urea Nitrogen) 34 mg/dL (8.4-25.7); Calc. Creatinine Clearance 55 mL/min (70-130); Carbon Dioxide 30 mmol/L (22-29); Chloride 98 mmol/L (98-107); Estimated GFR 49; Glucose 71 mg/dL (70-105); Potassium 3.6 mmol/L (3.5-5.1); Sodium 134 mmol/L (136-145)
[2022-06-25 06:45] LABS: Magnesium 2.1 mg/dL (1.6-2.6)
[2022-06-25] MEDS ORDERED: Iopamidol 370 76% 100 ML VIAL ONE (13:58)
[2022-06-25] MEDS: Insulin Glargine 30 UNITS/0.3 ML VIAL SC SCH (21:28)
[2022-06-25] MEDS: HumaLOG 300 UNITS/3 ML VIAL SC PRN (21:29)
[2022-06-26] MEDS: HumaLOG 300 UNITS/3 ML VIAL SC PRN (12:22)
[2022-06-26 13:08] VITALS: BP 168/79; TEMP 98.2
== END 2022-06-26 12:32 | disposition home or self-care (01) ==
LOC: ERS 16:14 → 2SW 06-24 00:08
PROVIDERS: ADMIT Student in an Organized Health Care Education/Training Program; ATTEND Hospitalist
DX: E10.65 Type 1 diabetes mellitus with hyperglycemia (principal); N28.89 Other specified disorders of kidney and ureter; I12.9 Hypertensive chronic kidney disease with stage 1 through stage 4 chronic kidney disease, or unspecified chronic kidney disease; E10.22 Type 1 diabetes mellitus with diabetic chronic kidney disease; N18.9 Chronic kidney disease, unspecified; N17.9 Acute kidney failure, unspecified; E78.5 Hyperlipidemia, unspecified; F12.10 Cannabis abuse, uncomplicated; Z20.822 Contact with and (suspected) exposure to COVID-19
CPT/HCPCS: 36415; 36416; 71045; 74177; 74178; 80048; 80053; 81003; 81015; 82010; 82553; 82805; 83605; 83690; 83735; 84484; 85025; 93005; 96361; 96372; 96374; G0378; J1650; J1815; J2405; J7050; Q9967; U0003; U0005

== ENCOUNTER 2022-08-20 08:20 | Day surgery (SDC) | payer OTHER ==
[2022-08-18 14:07] VITALS: BMI 25.0
[2022-08-20 08:38] LABS: #Basophils 0.1 thou/uL (0.0-0.2); #Eosinphils 0.5 thou/uL (0.0-0.7); #Lymphocytes 2.3 thou/uL (1.20-3.40); #Monocytes 0.5 thou/uL (0.11-0.59); #Neutrophils 4.4 thou/uL (1.40-6.50); %Basophils 0.7 % (0.0-1.0); %Eosinophils 6.4 % (0.0-10.0); %Lymphocytes 29.3 % (21.0-51.0); %Monocytes 6.8 % (0.0-10.0); %Neutrophils 56.8 % (42.0-75.0); Hemoglobin 13.9 g/dL (14.0-18.0); Mean Corpuscular HGB CONC 34.6 g/dL (32.0-36.0); Mean Corpuscular Hemoglobin 31.7 pg (27.0-31.0); Mean Corpuscular Volume 91.6 fl (78.0-98.0); Mean Platelet Volume 8.6 fL (7.4-10.4); Platelet Count 213 10x3/uL (130-400); RBC Distribution Width 11.6 % (11.5-14.5); Red Blood Cell (RBC) Count 4.37 mill/uL (4.70-6.10); White Blood Cell (WBC) Count 7.8 10x3/uL (4.8-10.8)
[2022-08-20 08:43] LABS: PTT 26.9 sec (22.9-36.1); Prothrombin Time 13.1 sec (12.0-14.7)
[2022-08-20 09:32] VITALS: BP 145/85; TEMP 97.7
== END 2022-08-20 10:25 | disposition home or self-care (01) ==
LOC: CT 08:20
PROVIDERS: ATTEND Urology
DX: N28.89 Other specified disorders of kidney and ureter (principal); E78.5 Hyperlipidemia, unspecified; I12.9 Hypertensive chronic kidney disease with stage 1 through stage 4 chronic kidney disease, or unspecified chronic kidney disease; E11.22 Type 2 diabetes mellitus with diabetic chronic kidney disease; N18.32 Chronic kidney disease, stage 3b; D63.1 Anemia in chronic kidney disease; Z53.09 Procedure and treatment not carried out because of other contraindication; Z87.891 Personal history of nicotine dependence; Z79.4 Long term (current) use of insulin
CPT/HCPCS: 76380; 85025; 85610; 85730